=== PATIENT | male | born 1965 | race Caucasian/White ===

== ENCOUNTER 2021-05-04 08:29 | Inpatient (IN) | payer OTHER ==
[~2021-05-04] VITALS: Ht 182.9 cm; Wt 114.3 kg
[~2021-05-04 08:29] MED LIST: CYCLOBENZAPRINE10 MG; NAPROSYN500 MG PO; NORCO 5-325 TA1 EACH PO; NORFLEX100 MG PO
[2021-05-04 08:44] VITALS: BP 116/68
[2021-05-04 10:12] LABS: HEMATOCRIT 32.3 % (42.0-52.0); HEMOGLOBIN 11.2 gm/dL (14.0-18.0); MCH 29.7 pg (26.0-34.0); MCHC 34.7 g/dL (28.0-37.0); MCV 85.6 fL (80.0-100.0); PLATELET COUNT 601 thou/uL (150-400); RBC 3.77 mil/uL (4.50-6.00); RDW 13.3 % (10.5-14.5); WBC 32.5 thou/uL (4.0-11.0)
[2021-05-04 10:28] LABS: CALCIUM 8.3 mg/dL (8.5-10.1); POTASSIUM 4.3 mmol/L (3.5-5.1)
[2021-05-04 10:41] LABS: ALBUMIN 1.6 g/dL (3.4-5.0); TOTAL BILIRUBIN 0.7 mg/dL (0.2-1.0); TOTAL PROTEIN 7.1 g/dL (6.4-8.2)
[2021-05-04 11:08] LABS: METAMYELOCYTES 3 %; PLATELET ESTIMATE INCREASED
--- NOTE | 2021-05-04 11:30 | NUR ---
PT TRANSFERRED TO ED RM#23 FROM [facility], [facility] RN'S ASSUMED CARE FROM ARIN Mejia RN
[2021-05-04 11:35] VITALS: BP 124/73
[2021-05-04 13:29] LABS: BE(vivo) 2.9 mmol/L (-2 to +3); HCO3 25.7 mmol/L (22.0-26.0); PCO2 33.3 mmHg (35.0-45.0); PO2 78.4 mmHg (80.0-100.0); pH 7.506 (7.360-7.450); sO2 96.7 % (92.0-98.0)
[2021-05-04 13:51] LABS: FOLIC ACID 9.5 ng/mL (8.6-58.9)
[2021-05-04 16:17] VITALS: BP 118/62
--- NOTE | 2021-05-04 17:51 | NUR ---
56 year old male presents to the ED with severe cough and bloody sputum. Been present over the last few days and getting steadily worse. Exertion makes it worse. Nothing makes it better. High fevers. Patient also reports being tested twice for COVID and ID NOW testing in ED is negative. CXR shows consistency with pneumonitis and WBS of 32.5 with fevers of 110-99.3. At present patient is on 2L via NC. The patient has been admitted with Pneumonia. The patient in the ED assessed as A&O x 4 and list Vy Sosa as contact at [phone]. As plan of care and assessments by MD team are completed CM will follow for all discharge needs.
[2021-05-04 18:17] VITALS: BP 118/62
[2021-05-04 18:36] VITALS: BP 117/68
[2021-05-04 19:00] VITALS: BP 111/67
--- NOTE | 2021-05-04 21:00 | NUR ---
RECEIVED REPORT FROM DAY SHIFT NURSE, PT IN ROOM WITH SCARRER IN PLACE, INTRODUCED SELF AND ASSESSED AND DISCUSSED CURRENT POC , PT VERBALIZED UNDERSTANDING, IV FLUIDS INFUSING WELL, PT HAVE 02 OFF SAT 95 ON RA,PRESENTLY DENIES SOA, GAIT STEADY WHEN UP TO BATHROOM.DRY COUGH NOTED AT TIMES. PT RESTED WELL THOUGHOUT HOURLY ROUNDS , NO COMPLIANTS SOA. WILL CONITINUE WITH CURRENT POC AND WILL REPORT CHANGES. R
[2021-05-05 03:06] LABS: GLYCOHEMOGLOBIN (HGB A1C) 9.7 % (4.8-5.6)
[2021-05-05 03:07] LABS: ABSOLUTE NEUTROPHILS 20.9 thou/uL (1.4-8.2); BASOPHILS 0.1 % (0.0-2.0); HEMATOCRIT 29.6 % (42.0-52.0); HEMOGLOBIN 9.6 gm/dL (14.0-18.0); LYMPHOCYTES 4.8 % (24.0-44.0); MCH 27.9 pg (26.0-34.0); MCHC 32.3 g/dL (28.0-37.0); MCV 86.2 fL (80.0-100.0); MONOCYTES 2.9 % (1.0-8.0); PLATELET COUNT 542 thou/uL (150-400); POLYS 92.2 % (36.0-66.0); RBC 3.43 mil/uL (4.50-6.00); RDW 13.2 % (10.5-14.5); WBC 22.7 thou/uL (4.0-11.0)
[2021-05-05 03:17] LABS: CALCIUM 7.4 mg/dL (8.5-10.1); CREATININE 0.8 mg/dL (0.7-1.3); MAGNESIUM 2.1 mg/dL (1.8-2.4); POTASSIUM 4.2 mmol/L (3.5-5.1)
[2021-05-05 04:45] VITALS: BP 97/60
[2021-05-05 08:00] VITALS: BP 120/70
[2021-05-05 12:10] VITALS: BP 102/62
[2021-05-05 16:10] VITALS: BP 162/70
[2021-05-05 16:25] VITALS: BP 102/63
--- NOTE | 2021-05-05 16:51 | NUR ---
PT ASSESSED AT START OF SHIFT. PT STATES HE'S FEELING AND BREATHING BETTER. COUGHING OUT SOME MUCOUS ON OCCASION. AMBULATED W/ THERAPY FOR EXERCISE OX AND DID OK. ON ROOM AIR. ON IV STEROIDS AN ACCUCHECKS HIGH. INSULIN GIVEN. PT DRINKING A LOT OF WATER. DID HAVE 2 LOOSE BM'S. SISTER BROUGHT CLEAN SHORTS THIS AFTERNOON.
[2021-05-05 20:15] VITALS: BP 107/61
[2021-05-06 04:01] LABS: CALCIUM 7.5 mg/dL (8.5-10.1); CREATININE 0.8 mg/dL (0.7-1.3); MAGNESIUM 2.5 mg/dL (1.8-2.4); POTASSIUM 4.8 mmol/L (3.5-5.1)
[2021-05-06 04:18] LABS: HEMATOCRIT 30.2 % (42.0-52.0); HEMOGLOBIN 9.9 gm/dL (14.0-18.0); MCH 28.4 pg (26.0-34.0); MCHC 32.7 g/dL (28.0-37.0); RBC 3.47 mil/uL (4.50-6.00); RDW 13.2 % (10.5-14.5); WBC 25.1 thou/uL (4.0-11.0)
[2021-05-06 04:44] VITALS: BP 135/50
--- NOTE | 2021-05-06 05:19 | NUR ---
PT RESTING QUIETLY THE THE SHIFT, NO C/O PAIN, FLUIDS INFUSING IN R HAND IV, REMAINS ON RA WITH PRODUCTIVE MUCOUSY COUGH, STATES HE IS FEELING MUCH BETTER, WILL CON'T TO MONITOR PER PPOC.
[2021-05-06 16:25] VITALS: BP 138/83
[2021-05-06 22:37] VITALS: BP 144/181
[2021-05-07 03:59] VITALS: BP 141/73
[2021-05-07 08:15] VITALS: BP 129/67
--- NOTE | 2021-05-07 08:15 | NUR ---
PT RESTING QUIETLY IN ROOM WITH OUT ANY C/O PAIN, UP ADLIB IN ROOM, HR INCREASES TO 120'S WITH ACTIVITY OTHERWISE VSS, HOPES TO GO HOME SOON, WILL CON'T TO MONITOR PER PPOC.
[2021-05-07 11:30] VITALS: BP 123/76
[2021-05-07] MEDS ORDERED: LISINOPRIL5 MG PO (13:44)
[2021-05-07] MEDS ORDERED: METFORMIN HCL500 MG PO ×2 (13:44)
[2021-05-07] MEDS ORDERED: FREESTYLE TEST1 EACH SUBQ (13:44)
[2021-05-07] MEDS ORDERED: CEFUROXIME500 MG PO (13:44)
[2021-05-07] MEDS ORDERED: FREESTYLE SYST1 EACH SUBQ (13:44)
[2021-05-07] MEDS ORDERED: ZITHROMAX500 MG PO (13:44)
[2021-05-07] MEDS ORDERED: PROAIR HFA8.5 GM INH (13:44)
[2021-05-07] MEDS ORDERED: TRADJENTA5 MG PO (13:44)
[2021-05-07] MEDS ORDERED: FREESTYLE LANC1 EACH MISCELL (13:44)
[2021-05-07] MEDS ORDERED: PREDNISONE 20 M20 M1 PO (13:44)
[2021-05-07 13:51] VITALS: BP 123/76
--- NOTE | 2021-05-07 14:46 | NUR ---
PT RESTING COMFORTABLY. AFEBRILE, ADEQUATE UOP, NO BM, APPROPRIATE APPETITE. PT DC HOME, HE WAS EDUCATED ON ALL MEDICATIONS AND DIABETES. PT STATED UNDERSTANDING. PT HAS BEEN THOUROUGHLY UPDATED AND EDUCATED ON PT CONDITION AND POC. PT PROGRESSED TOWARDS POC.
[2021-05-07] MEDS ORDERED: ONE TOUCH ULTR1 EAC3 SUBQ (15:12)
[2021-05-07] MEDS ORDERED: JANUVIA100 MG PO (15:12)
== END 2021-05-07 15:26 | disposition home or self-care (01) | DRG 871 ==
LOC: ER 08:29 → EROBS 11:35 → 2N 11:35
PROVIDERS: Emergency Medicine; Nurse Practitioner; ADMIT Internal Medicine; ATTEND Internal Medicine
DX: A41.9 Sepsis, unspecified organism (principal); J18.9 Pneumonia, unspecified organism; J96.01 Acute respiratory failure with hypoxia; R04.2 Hemoptysis; J44.1 Chronic obstructive pulmonary disease with (acute) exacerbation; J44.0 Chronic obstructive pulmonary disease with (acute) lower respiratory infection; Z20.822 Contact with and (suspected) exposure to COVID-19; F17.210 Nicotine dependence, cigarettes, uncomplicated; E11.9 Type 2 diabetes mellitus without complications; I10 Essential (primary) hypertension; Z79.899 Other long term (current) drug therapy; Z71.6 Tobacco abuse counseling
CPT/HCPCS: 10081